=== PATIENT | female | born 1995 ===

== ENCOUNTER 2025-08-01 07:24 | Outpatient (CLI) | payer OTHER | END 2025-08-01 07:39 | disposition home or self-care (01) | LOC: SONOGRAMA 07:24 | DX: Z31.83 Encounter for assisted reproductive fertility procedure cycle (principal) ==

== ENCOUNTER 2025-08-14 07:03 | Outpatient (CLI) | payer OTHER | END 2025-08-14 07:31 | disposition home or self-care (01) | LOC: SONOGRAMA 07:03 | DX: N83.201 Unspecified ovarian cyst, right side (principal); N83.202 Unspecified ovarian cyst, left side; R93.89 Abnormal findings on diagnostic imaging of other specified body structures ==

== ENCOUNTER 2025-09-15 07:06 | Outpatient (CLI) | payer OTHER | END 2025-09-15 07:07 | disposition home or self-care (01) | LOC: SONOGRAMA 07:06 | DX: Z31.83 Encounter for assisted reproductive fertility procedure cycle (principal) ==

== ENCOUNTER 2025-09-29 07:29 | Outpatient (CLI) | payer OTHER | END 2025-09-29 07:31 | disposition home or self-care (01) | LOC: SONOGRAMA 07:29 | DX: Z31.83 Encounter for assisted reproductive fertility procedure cycle (principal) ==

== ENCOUNTER 2025-10-02 07:57 | Outpatient (CLI) | payer OTHER | END 2025-10-02 08:00 | disposition home or self-care (01) | LOC: SONOGRAMA 07:57 | DX: Z31.83 Encounter for assisted reproductive fertility procedure cycle (principal) ==